=== PATIENT | female | born 1950 | race African-American/Black ===

== ENCOUNTER 2017-04-06 14:09 | Inpatient (IN) | payer OTHER ==
[~2017-04-06] VITALS: Ht 165.1 cm; Wt 113.1 kg
[2017-04-06] VITALS (9 sets, daily range): BP systolic 111–131; BP diastolic 65–74
[2017-04-06] MEDS ORDERED: ASPirin 81 mg TAB PO ONE (14:30)
[2017-04-06] MEDS ORDERED: HEPARIN SODIUM (PORCINE) 5000 UNITS/ML 1ML VIAL ONE (14:51)
[2017-04-06] MEDS ORDERED: LIDOCAINE 2%HCL (LOCAL ANESTH.) INJ 20ML MDV ONE (14:53)
[2017-04-06] MEDS ORDERED: IOHEXOL 350 MG/ML 100ML IJ ONE (14:53)
[2017-04-06] MEDS ORDERED: NITROGLYCERIN 0.4 MG SL TAB SL PRN ×3 (15:00→17:30)
[2017-04-06] MEDS ORDERED: MORPHINE SULF INJ 2 MG/ML SYRINGE 1ML IV PRN ×2 (15:00→17:30)
[2017-04-06] MEDS ORDERED: D5W/SOD CHL 0.45% 1,000 ML IV ONE (15:00)
[2017-04-06] MEDS ORDERED: HEPARIN SODIUM (PORCINE) 5000 UNITS/ML 1ML VIAL IV ONE (15:00)
[2017-04-06] MEDS ORDERED: MORPHINE SULF INJ 2 MG/ML SYRINGE 1ML IV ONE (15:00)
[2017-04-06] MEDS ORDERED: ASPirin 325 MG TAB PO ONE (15:00)
[2017-04-06] MEDS: ENALAPRIL MALEATE 2.5 MG TAB PO SCH (15:15)
[2017-04-06] MEDS ORDERED: fentaNYL CITRATE 100 MCG/2 ML VL ONE (15:26)
[2017-04-06] MEDS ORDERED: MIDAZOLAM HCL 1MG/1ML-2 ML VIAL ONE (15:27)
[2017-04-06 15:40] LABS: Basophils # (auto) 0 uL; Eosinophils # (auto) 0 uL; Hematocrit 42.2 % (36.0-46.0); Hemoglobin 14.2 g/dL (12.2-16.2); Lymphocytes # (auto) 1.2 uL; Lymphocytes % (auto) 7.7 % (10.0-50.0); Mean Corpuscular Hemoglobin 30.9 pg (28.0-32.0); Mean Corpuscular Hgb Conc. 33.6 g/dL (32.0-36.0); Mean Corpuscular Volume 91.9 fL (80.0-100.0); Mean Platelet Volume 7.8 fL (7.4-10.4); Monocytes # (auto) 1.1 uL; Monocytes % (auto) 7.3 % (0.0-12.0); Platelet Count (auto) 355 10^3/uL (140-450); Red Cell Distribution Width 14.7 % (11.6-16.0); White Blood Cell 15.3 10^3/uL (4.4-10.8)
[2017-04-06 16:01] LABS: Anion Gap 11 (5-15); Aspartate Aminotransferase 46 U/L (15-37); BUN/Creatinine Ratio 23.4; Blood Urea Nitrogen 26 mg/dL (7-18); Calcium 8.3 mg/dL (8.5-10.1); Carbon Dioxide 23 mmol/L (21-32); Chloride 102 mmol/L (98-107); GFR African American 63 mL/min; GFR Non-African American 52 mL/min; Glucose 113 mg/dL (74-106); Magnesium 2.8 mg/dL (1.6-2.6); Sodium 136 mmol/L (136-145)
[2017-04-06 16:04] LABS: Partial Thromboplastin Time 43.1 sec (22.64-33.71)
[2017-04-06 16:05] LABS: INR 1.91 (0.9-1.15); Prothrombin Time 20.6 sec (9.37-12.3)
[2017-04-06 16:09] LABS: Alkaline Phosphatase 107 U/L (45-117); Bilirubin, Total 0.6 mg/dL (0.2-1.0); Total Protein 8.2 g/dL (6.4-8.2)
[2017-04-06 16:13] LABS: B-Type Natriuretic Peptide 212.56 pg/mL (0-100); Temperature: 22.3 C (20.0-25.0)
[2017-04-06] MEDS ORDERED: ONDANSETRON HCL 4 MG/2 ML VIAL IV PRN (17:30)
[2017-04-06] MEDS ORDERED: LORazepam 0.5 MG TAB PO PRN (17:30)
[2017-04-06] MEDS ORDERED: ACETAMINOPHEN 500 MG TAB PO PRN (17:30)
[2017-04-06] MEDS ORDERED: HYDROcodone-ACET 5/325MG TAB PO PRN (17:30)
[2017-04-06] MEDS ORDERED: CEFTRIAXONE SODIUM 2 GM in D5W 5% 50 ML IV ONE (17:30)
[2017-04-06 17:31] LABS: Albumin 2.9 g/dL (3.4-5.0)
[2017-04-06] MEDS ORDERED: ALBUTEROL SULF 2.5 MG/0.5ML(0.5%) NEB SOLN NEB PRN (17:45)
[2017-04-06] MEDS ORDERED: WARFARIN SODIUM 2.5 MG TAB PO ONE (18:15)
[2017-04-06] MEDS ORDERED: LEVOTHYROXINE SODIUM 50 MCG TAB PO ONE (18:15)
[2017-04-06] MEDS ORDERED: LEVO125T6 PO (18:54)
[2017-04-06] MEDS ORDERED: WARF5TAB71 PO (18:54)
[2017-04-06] MEDS ORDERED: NOR5T PO (18:54)
[2017-04-06] MEDS ORDERED: ATORVASTATIN 20 MG TAB PO SCH (22:00)
[2017-04-06] MEDS: SODIUM CHLOR 0.9% PF (SALINE LOCK) 10ML VIAL IV SCH (22:04)
[2017-04-07] VITALS (8 sets, daily range): BP systolic 110–122; BP diastolic 62–74
[2017-04-07] MEDS: SODIUM CHLOR 0.9% PF (SALINE LOCK) 10ML VIAL IV SCH ×2 (05:00→14:07)
[2017-04-07 05:33] LABS: INR 2.63 (0.9-1.15); Partial Thromboplastin Time 41.3 sec (22.64-33.71); Prothrombin Time 28.4 sec (9.37-12.3)
[2017-04-07 05:38] LABS: Basophils # (auto) 0 uL; Basophils % (auto) 0.4 % (0.0-2.0); Eosinophils # (auto) 0.1 uL; Eosinophils % (auto) 0.7 % (0.0-7.0); Hematocrit 36.5 % (36.0-46.0); Hemoglobin 12.2 g/dL (12.2-16.2); Lymphocytes # (auto) 1.2 uL; Lymphocytes % (auto) 12.6 % (10.0-50.0); Mean Corpuscular Hemoglobin 30.7 pg (28.0-32.0); Mean Corpuscular Hgb Conc. 33.5 g/dL (32.0-36.0); Mean Corpuscular Volume 91.6 fL (80.0-100.0); Mean Platelet Volume 7.8 fL (7.4-10.4); Monocytes # (auto) 0.9 uL; Monocytes % (auto) 9.1 % (0.0-12.0); Neutrophils # (auto) 7.2 uL; Neutrophils % (auto) 77.2 % (37.0-80.0); Platelet Count (auto) 360 10^3/uL (140-450); Red Cell Distribution Width 14.8 % (11.6-16.0); White Blood Cell 9.4 10^3/uL (4.4-10.8)
[2017-04-07 05:45] LABS: Albumin 2.2 g/dL (3.4-5.0); BUN/Creatinine Ratio 22.4; Calcium 7.5 mg/dL (8.5-10.1); Potassium 3.5 mmol/L (3.5-5.1)
[2017-04-07 05:48] LABS: Bilirubin, Total 0.3 mg/dL (0.2-1.0); Total Protein 6.9 g/dL (6.4-8.2)
[2017-04-07] MEDS ORDERED: LEVOTHYROXINE SODIUM 50 MCG TAB PO SCH (07:00)
[2017-04-07] MEDS ORDERED: cefTRIAXone 1GM/50ML D5W 50 ML IV SCH (09:00)
[2017-04-07] MEDS ORDERED: AZITHROMYCIN 500MG/D5W 250ML 250 ML IV SCH (10:00)
[2017-04-07] MEDS: ENALAPRIL MALEATE 2.5 MG TAB PO SCH (10:00)
[2017-04-08] MEDS ORDERED: ASPirin 81 mg TAB PO SCH (10:00)
== END 2017-04-07 18:34 | disposition home or self-care (01) | DRG 286 ==
LOC: ER 14:09 → CATH 15:07 → DOU IN ICU 15:08
PROVIDERS: ADMIT Specialist; ATTEND Specialist
PROC: 4A023N7 Measurement of Cardiac Sampling and Pressure, Left Heart, Percutaneous Approach (ICD-10-PCS; principal; 2017-04-06)
PROC: B41F1ZZ Fluoroscopy of Right Lower Extremity Arteries using Low Osmolar Contrast (ICD-10-PCS; 2017-04-06)
PROC: B2111ZZ Fluoroscopy of Multiple Coronary Arteries using Low Osmolar Contrast (ICD-10-PCS; 2017-04-06)
PROC: B2151ZZ Fluoroscopy of Left Heart using Low Osmolar Contrast (ICD-10-PCS; 2017-04-06)
DX: I30.9 Acute pericarditis, unspecified (principal); J18.9 Pneumonia, unspecified organism; I24.9 Acute ischemic heart disease, unspecified; E03.9 Hypothyroidism, unspecified; I25.10 Atherosclerotic heart disease of native coronary artery without angina pectoris; I51.4 Myocarditis, unspecified; J20.9 Acute bronchitis, unspecified
CPT/HCPCS: 36415; 71010; 80053; 83735; 83880; 84443; 84484; 85025; 85610; 85730; 87040; 87081; 93005; 93458; 94761; J0696; J2250; J7060